=== PATIENT | male | born 1985 | race Caucasian/White ===

== ENCOUNTER 2017-11-16 19:10 | Emergency (ER) | payer SELFPAY ==
[2017-11-16] MEDS: HYDROCODONE/APAP (5/325) TAB PO (22:07)
== END 2017-11-17 00:02 | disposition home or self-care (01) ==
LOC: FTE 11-17 00:02
DX: S39.012A Strain of muscle, fascia and tendon of lower back, initial encounter (principal); S16.1XXA Strain of muscle, fascia and tendon at neck level, initial encounter; R07.9 Chest pain, unspecified; V49.40XA Driver injured in collision with unspecified motor vehicles in traffic accident, initial encounter
CPT/HCPCS: 71045; 99284-25